=== PATIENT | male | born 1975 | race African-American/Black ===

== ENCOUNTER → 2020-11-30 | Outpatient (CLI) | payer BC | LOC: RAD 13:13 | PROVIDERS: ATTEND Family Medicine | DX: J90 Pleural effusion, not elsewhere classified (principal); I50.9 Heart failure, unspecified | CPT/HCPCS: 71046 ==

== ENCOUNTER → 2021-09-19 | Outpatient (CLI) | payer BC | LOC: RAD 13:46 | PROVIDERS: ATTEND Family Medicine | DX: M79.605 Pain in left leg (principal); M79.604 Pain in right leg | CPT/HCPCS: 93970 ==